=== PATIENT | female | born 1950 | race Caucasian/White ===

== ENCOUNTER 2016-09-26 12:36 | Observation (INO) | payer MEDICARE, OTHER ==
--- NOTE | ~2016-09-26 | OP ---
Record Of Operation [facility] [address] [place]. [address] NAME: KATHIA ABEL : 50 STATUS : DIS Sudhir PAT#: [id number] AGE: 66 ADM/REG DATE : 09/26/16 MR#: [id number] REPORT SERV DATE: 09/27/16 DICTATED BY: SHERYL EDGAR DATE: 09/27/16 REPORT STATUS : Draft TRANSCRIBED BY: MODL DATE: 09/27/16 DATE OF PROCEDURE: 09/26/2016 TITLE OF OPERATION: Cystourethroscopy, right retrograde pyelogram, right ureteroscopy with laser lithotripsy, and placement of 6 x 24 right ureteral stent with tether. PREOPERATIVE DIAGNOSIS: Right renal stones. POSTOPERATIVE DIAGNOSIS: Right renal stones. INDICATIONS: Ms. Abel is a 66-year-old female who is known to wi. She has a history of stones starting recently. She had her stone treated approximately eight months ago. She developed a large symptomatic right renal stone. She is here for treatment. ANESTHESIA: General. COMPLICATIONS: None. IMPLANT: 6 x 24 right ureteral stent. SPECIMEN: Stone for analysis. NARRATIVE: The patient was brought to the operating room, identified by her wristband. General anesthesia was induced and Levaquin was given for preoperative antibiotics. She was placed in the dorsal lithotomy position, prepped and draped in sterile fashion. A cystoscope was placed into her urethra and into her bladder. The bladder was inspected. It was normal. A 5-Hebrew open-ended catheter was placed over wire to the distal ureter. Retrograde pyelogram was shot, which demonstrated normal ureter and a filling defect in the kidney consistent with a ureteral stone. A flexible ureteroscope was placed over the wire up to the level of the kidney. The kidney was inspected. The stone was identified. It was fragmented into innumerable submillimeter pieces with a 200 micron laser fiber using 100 watt laser. One of these fragments was grasped with a flexible grasper and removed from the body and sent to pathology for analysis. The rest of the kidney was inspected. It was normal. No other tumors or issues. The ureter was inspected. There were no stones. No abnormalities. The scope was removed. A wire was replaced. A 6 x 24 ureteral stent was placed. The proximal coil was in the renal pelvis. Distal coil was in the bladder. A tether was left. The tether was taped to her leg. She will remove her stent on Saturday. The patient was awoken from anesthesia and transferred to the recovery room in stable condition. I will see her back in two weeks to arrange for a Litholink study as she is forming stones at a fairly fast rate. DARIUS/ALFREDO Sheryl Lopez Record Of Operation [facility] [address] [facility] [place]. [address] NAME: KATHIA ABEL : 50 STATUS : DIS Sudhir PAT#: [id number] AGE: 66 ADM/REG DATE : 09/26/16 MR#: [id number] REPORT SERV DATE: 09/27/16 DICTATED BY: SHERYL EDGAR DATE: 09/27/16 REPORT STATUS : Draft TRANSCRIBED BY: ALFREDO DATE: 09/27/16 MD Matthew / [id number] CC: MD Sidney Eller M.D.
[~2016-09-26 12:36] MED LIST: ANTIBIOTIC; AVAPRO300 MG PO; CALTRA600D PO; FLOMAX4 PO; FLONASE NAS; MIRALAX POWDER1 PKT PO; MULTIVIT/MIN PO; PCET PO; RESTASIS OPH
[2016-10-02 18:31] LABS: SOURCE OF STONE Right Ureter (()); STONE COMPOSITION TWO DNR (())
== END 2016-09-27 11:25 | disposition home or self-care (01) ==
LOC: SDC 12:36 → 4SO 21:20
PROVIDERS: Urology
PROC: 0T768DZ Dilation of Right Ureter with Intraluminal Device, Via Natural or Artificial Opening Endoscopic (ICD-10-PCS; 2016-09-26)
PROC: 0TC38ZZ Extirpation of Matter from Right Kidney Pelvis, Via Natural or Artificial Opening Endoscopic (ICD-10-PCS; 2016-09-26)
PROC: BT1D1ZZ Fluoroscopy of Right Kidney, Ureter and Bladder using Low Osmolar Contrast (ICD-10-PCS; 2016-09-26)
PROC: 0TF38ZZ Fragmentation in Right Kidney Pelvis, Via Natural or Artificial Opening Endoscopic (ICD-10-PCS; principal; 2016-09-26 14:00)
DX: N20.0 Calculus of kidney (principal); I10 Essential (primary) hypertension; G43.909 Migraine, unspecified, not intractable, without status migrainosus; M19.90 Unspecified osteoarthritis, unspecified site; Z98.890 Other specified postprocedural states
CPT/HCPCS: 74420; 82365; 93005; 96374; A9270-GY; C1758; C2617; G0378; J1170; J1885; J2250; J2270; J2405; J2710; J3010; Q9967